=== PATIENT | female | born 1945 | race Caucasian/White ===

== ENCOUNTER 2018-03-30 09:36 | Day surgery (SDC) | payer OTHER ==
[2018-03-30] MEDS ORDERED: NS 500 ML IV ONE (09:40)
[2018-03-30] MEDS ORDERED: BENZOCAINE UNIT DOSE SPRAY HURRICAINE MM ONE (09:40)
[2018-03-30] MEDS ORDERED: fentaNYL 100 MCG/2 ML INJ IVP ONE (09:40)
[2018-03-30] MEDS ORDERED: MIDAZOLAM 2 MG/2 ML VIAL IVP ONE (09:40)
--- NOTE | 2018-03-30 10:36 | PDANEPAE ---
ANE History of Present Illness 72 yo for malinda ANE Past Medical History - Cardiovascular History Hx Hypertension: Yes Hx Chest Pain: No Hx Coronary Artery / Peripheral Vascular Disease: No Hx CHF / Valvular Disease: Yes Cardiovascular History Comment: Heart Murmmur - Pulmonary History Hx COPD: No Hx Asthma/Reactive Airway Disease: Yes Hx Oxygen in Use at Home: No Hx Sleep Apnea: No Pulmonary History Comment: asthma - Endocrine History Hx Diabetes: Yes - Cancer History Hx Cancer: Yes Cancer History Comment: breast cancer 2008. Bilat Mastectomy. Basal cell carcinoma on face - Chronic Pain History Chronic Pain: No - Surgical History Prior Surgeries: Breast CA 2008. L Hip Replacement 2012. R Hip Replacement 2013 ANE Review of Systems Review of Systems: - Exercise capacity METS (RN): 3 METS ANE Patient History - Allergies Allergies/Adverse Reactions: adhesive Allergy (Verified 01/09/14 16:01) azithromycin Allergy (Verified 01/02/14 12:50) cephalexin monohydrate [From Keflex] Allergy (Verified 01/10/14 12:52) Cephalosporins Allergy (Verified 01/10/14 12:52) codeine [Codeine] Allergy (Verified 04/17/10 17:46) pregabalin [From Lyrica] Allergy (Verified 01/10/14 12:52) - Home Medications Home medications: home medication list seen and reviewed Home Medications: Advair 250/50 04/17/10 [Last Taken Unknown] Klor-Con 04/17/10 [Last Taken Unknown] PRILOSEC 04/17/10 [Last Taken Unknown] SINGULAIR 04/17/10 [Last Taken Unknown] Verapamil 04/17/10 [Last Taken Unknown] Vits,Fish Oil,B12 04/17/10 [Last Taken Unknown] - NPO status NPO Status: no food or drink >8 hours - Smoking Hx Smoking Status: Former smoker ANE Labs/Vital Signs - Vital Signs Height: 5 ft 3 in Weight: 90.718 kg ANE Physical Exam - Airway Neck exam: FROM Mallampati Score: Class 3 Mouth exam: normal dental/mouth exam - Pulmonary Pulmonary: no respiratory distress - Cardiovascular Cardiovascular: regular rate and rhythym - ASA Status ASA Status: III ANE Anesthesia Plan Anesthesia Plan: MAC
[2018-03-30] MEDS ORDERED: PROPOFOL 200 MG/20 ML VIAL ONE ×3 (10:47→11:27)
--- NOTE | 2018-03-30 10:58 | PDHPUP ---
History & Physical Update H&P update statement: This history and physical update is based on an assessment of the patient which was completed after admission or registration (within 24 hours), but prior to the surgery/procedure. Pt presents for RAMESH to assess aortic valve in the setting of sub optimal transthoracic images with complaints of sob and harvey. H&P update: H&P reviewed & patient examined, no change in patient's condition since H&P completed
[2018-03-30] MEDS ORDERED: NALOXONE HCL 0.4 MG/ML INJ IVP PRN (11:42)
--- NOTE | 2018-03-30 11:53 | POSTANESTH ---
Post Anesthetic Evaluation Cardiovascular Status: Normal, Stable Respiratory Status: Normal, Stable Level of Consciousness/Mental Status: Can Participate in Eval Pain Control: Adequate, Prn Tx Ordered Nausea/Vomiting Control: Adequate, Prn Tx Ordered Complications Possibly Related to Anesthesia: None Noted
--- NOTE | 2018-03-30 13:26 | ECHO ---
[email or web address] [address] [address] Main: [phone] Fax: Transesophageal Echocardiography Name: CARLITA PLASENCIA MR#: [id number] Study Date: 03/30/2018 Study Time: 10:57 AM Date of : 1945 Age: 72 year(s) Height: ( ) Weight: ( ) BSA: Gender: Female Examination: RAMESH Indication: Assess aortic valve Image Quality: Contrast: Requested by: Boubacar Azevedo Heart Rate: Rhythm: BP: / Procedure Staff Professor Of Latin American Studies: Catrachita Green [facility] Reading Physician: Boubacar Azevedo MD Requesting Provider: RAMESH Exam Details Conclusions: Normal size left ventricle. Moderate concentric LV hypertrophy. Normal global systolic LV function. There is a small ridge noted on the basal septum causing a significant narrowing of the left ventricular outflow tract. The peak LVOT gradient is 66mmHg. There is moderate thickening of the mitral valve leaflets. Mean mitral valve gradient 4mmHg. Mild mitral valve stenosis is present. The aortic valve is tri-leaflet. Aortic sclerosis is present. Increase in velocities and gradients across the AV due to sub-aortic stenosis. Estimated TIM by planimeter is 2.4cm2, NDSI = .65. Degree of aortic insufficiency is difficult to determine due to turbulance in the LVOT. Trivial tricuspid valve regurgitation. Measurements: Chambers Valvular Assessment AV/MV Valvular Assessment TV/PV Normal Normal Normal Name Value Range Name Value Range Name Value Range IVSd (2D): 1.3 cm (0.6 cm-1.1 AV Vmax: 3.71 m/s (1 m/s-1.7 cm) m/s) LVDd (2D): 3.5 cm (3.9 cm-5.3 AV maxP mmHg ( - ) cm) AV meanP mmHg ( - ) LVPWd (2D): 1.5 cm ( - ) TIM (VTI): 2.1 cm ( - ) LVOTd 2.0 cm 2.0 cm mm Patient: CARLITA PLASENCIA Study Date: 03/30/2018 Page 1 of 2 10:57 AM Additional Measurements: Findings: Left Ventricle: Normal size left ventricle. Moderate concentric LV hypertrophy. Normal global systolic LV function. No regional wall motion abnormality. There is a small ridge noted on the basal septum causing a significant narrowing of the left ventricular outflow tract. The peak LVOT gradient is 66mmHg. Right Ventricle: Normal size right ventricle. Normal RV function. Left Atrium: Normal appearing atrial septum. Left Atrial Appendage: No thrombus in left appendage. Mitral Valve: There is moderate thickening of the mitral valve leaflets. Mean mitral valve gradient 4mmHg. Mild mitral valve regurgitation is present. Mild mitral valve stenosis is present. Aortic Valve: The aortic valve is tri-leaflet. Aortic sclerosis is present. Increase in velocities and gradients across the AV due to sub-aortic stenosis. Estimated TIM by planimeter is 2.4cm2, NDSI = .65. Degree of aortic insufficiency is difficult to determine due to turbulance in the LVOT. Tricuspid Valve: The tricuspid valve is normal in appearance and function. Trivial tricuspid valve regurgitation. Pulmonic Valve: The pulmonic valve is normal in appearance and function. There is no pulmonic regurgitation seen. Pericardium: No pericardial effusion. l1n (No Signature Object) Patient: CARLITA PLASENCIA Study Date: 03/30/2018 Page 2 of 2 10:57 AM [id number]
== END 2018-03-30 14:12 | disposition home or self-care (01) ==
LOC: FCATH 09:36
PROVIDERS: ATTEND Internal Medicine Cardiovascular Disease
PROC: B245ZZ4 Ultrasonography of Left Heart, Transesophageal (ICD-10-PCS; principal; 2018-03-30)
DX: I35.2 Nonrheumatic aortic (valve) stenosis with insufficiency (principal); I35.8 Other nonrheumatic aortic valve disorders; R06.00 Dyspnea, unspecified; J45.909 Unspecified asthma, uncomplicated; E66.01 Morbid (severe) obesity due to excess calories; Z68.38 Body mass index [BMI] 38.0-38.9, adult; E11.9 Type 2 diabetes mellitus without complications; I10 Essential (primary) hypertension; Z85.3 Personal history of malignant neoplasm of breast; Z87.891 Personal history of nicotine dependence; Z82.49 Family history of ischemic heart disease and other diseases of the circulatory system; Z96.643 Presence of artificial hip joint, bilateral; Z90.13 Acquired absence of bilateral breasts and nipples; Z90.710 Acquired absence of both cervix and uterus
CPT/HCPCS: J2704

== ENCOUNTER → 2018-06-10 | Outpatient (CLI) | payer OTHER | LOC: FIMAGING 10:31 | PROVIDERS: ATTEND Internal Medicine | DX: R13.10 Dysphagia, unspecified (principal); R05 Cough | CPT/HCPCS: 92611-GN ==

== ENCOUNTER 2018-06-29 09:14 | Emergency (ER) | payer OTHER ==
--- NOTE | 2018-06-29 09:33 | EDPHY ---
H & P Stated Complaint: sob Time Seen by Provider: 06/29/18 09:18 HPI/ROS: Chief Complaint: Cough, shortness of breath HPI: 73-year-old woman with a history of asthma, mild hypertrophic cardiomyopathy is presenting with cough which has been worsening for the last few months. She has been on multiple courses of antibiotics. She has also been on steroids. She has not had any relief. She has a lot of throat clearing. She is also complaining of worsening headache in her face and behind her eyes. She was recently seen by her bundle sorter and had an echocardiogram and stress testing which was unchanged from prior. No evidence of ischemic heart disease. She does have a history of type 2 diabetes. This morning she was an exercise class and started having a coughing fit. She continued coughing for at least half a minute to a minute. She started feeling lightheaded and had to sit down. She did not have a syncopal episode. No chest pain. Does have some mild palpitations which resolved after about 5 min. No fevers or chills. Cough is productive of whitish sputum or is unproductive. No nausea or vomiting. ROS: 10 systems were reviewed and were negative except those elements noted in the HPI. PMH: Diabetes, cardiomyopathy, asthma Social History: No smoking, no alcohol, no recreational drug use Family History: non-contributory Physical Exam: Gen: Awake, Alert, No Distress HEENT: Nose: no rhinorrhea Eyes: PERRLA, EOMI Mouth: Moist mucosa Neck: Supple, no JVD Chest: nontender, lungs clear to auscultation, coarse upper respiratory cough, no wheezes rales or rhonchi Heart: S1, S2 normal, no murmur Abd: Soft, non-tender, no guarding Back: no CVA tenderness, no midline tenderness Ext: no edema, non-tender Skin: no rash Neuro: CN II-XII intact, Sensation grossly intact, Strength 5/5 in bilateral upper and lower extremities - Personal History Current Tetanus Diphtheria and Acellular Pertussis (TDAP): Yes - Medical/Surgical History Hx Asthma: Yes Hx Chronic Respiratory Disease: No Hx Diabetes: Yes Hx Cardiac Disease: No Hx Renal Disease: No Hx Cirrhosis: No Hx Alcoholism: No Hx HIV/AIDS: No Hx Splenectomy or Spleen Trauma: No Other PMH: HEART MURRER, DM,HTN,ASTHMA,APPY, BREAST CANCER, TONSILS,. VAG. HYST.,REBECCA. HIP REPLACEMANTS - Social History Smoking Status: Former smoker Constitutional: Initial Vital Signs Temperature (C) 37.1 C 06/29/18 09:23 Heart Rate 86 06/29/18 09:23 Respiratory Rate 94 H 06/29/18 09:23 Blood Pressure 169/101 H 06/29/18 09:23 O2 Sat (%) 21 L 06/29/18 09:23 O2 Delivery Mode Room Air Allergies/Adverse Reactions: adhesive Allergy (Verified 06/29/18 09:22) azithromycin Allergy (Verified 06/29/18 09:22) cephalexin monohydrate [From Keflex] Allergy (Verified 06/29/18 09:22) Cephalosporins Allergy (Verified 06/29/18 09:22) codeine [Codeine] Allergy (Verified 06/29/18 09:22) pregabalin [From Lyrica] Allergy (Verified 06/29/18 09:22) Home Medications: Medication Instructions Recorded Advair 250/50 BID 04/17/10 Hydrochlorothiazide 12.5 mg PO DAILY 03/30/18 Singulair 10 mg (*) 10 mg PO DAILY 03/30/18 Verapamil ER [Calan SR/ER 240MG 240 mg PO DAILY 03/30/18 (*)] Xopenex 2 puffs Q4-6PRN PRN 03/30/18 metFORMIN HCL [Metformin ER 500 mg PO BID 03/30/18 Osmotic] Flonase Nasal [place] 06/29/18 Medical Decision Making - Diagnostics EKG Interpretation: ECG time 9:27 a.m., sinus rhythm with a rate of 96, evidence of LVH with secondary repolarization, no acute ST or T-wave changes. Imaging Results: Imaging Impressions Chest X-Ray 06/29/18 09:53 Impression: 1. COPD/airways disease. No pneumonia. 2. Mild cardiomegaly without decompensation. ED Course/Re-evaluation: Chest x-ray shows no evidence of pneumonia. Patient has symptoms consistent with sinusitis and postnasal drip symptoms. She is already taking Flonase. Lightheadedness occurs after she coughs. I think they increased thoracic pressure from her persisting cough coupled with her mild outflow obstruction from her cardiomyopathy are causing her symptoms. I have cautioned her to make sure she is sitting down after she has a coughing fit. She has had a recent follow-up with bundle sorter. I will refer her to Ear Nose and Throat doctor for further evaluation. - Data Points Medications Given: Discontinued Medications Albuterol/Ipratropium (Duoneb) 3 ml IH EDNOW ONE Stop: 06/29/18 10:07 Last Admin: 06/29/18 10:09 Dose: 3 ml Departure - Departure Disposition: Home, Routine, Self-Care Clinical Impression: Cough Condition: Good Instructions: Chronic Cough (ED) Additional Instructions: Follow up with Ear Nose and Throat doctor in 2-3 days for further evaluation. Return to the emergency department for chest pain, fainting, worsening shortness of breath, worsening cough, or any other concerns. Referrals: Marianne Ashley MD [Primary Care Provider] - As per Instructions Bong Stewart MD [Medical Doctor] - As per Instructions
[2018-06-29] MEDS ORDERED: IPRATROPIUM/ALBUTEROL 3 ML DEYVIAL IH ONE (10:06)
[2018-06-29 11:01] VITALS: BP 143/85
--- NOTE | 2018-06-29 14:59 | CPEKG ---
Test Reason : OPEN Blood Pressure : / mmHG Vent. Rate : 096 BPM Atrial Rate : 096 BPM P-R Int : 145 ms QRS Dur : 099 ms QT Int : 376 ms P-R-T Axes : 038 -16 097 degrees QTc Int : 476 ms Sinus rhythm Probable left atrial enlargement LVH with secondary repolarization abnormality Confirmed by Dg Gtz ([id number]) on 06/29/2018 2:59:05 PM Referred By: Dg Gtz Confirmed By:Dg Gtz
== END 2018-06-29 11:23 | disposition home or self-care (01) ==
LOC: CED 09:14
DX: R05 Cough (principal); R06.02 Shortness of breath; Z87.891 Personal history of nicotine dependence
CPT/HCPCS: 71046-PO; 99284-ER